=== PATIENT | male | born 1980 | race Caucasian/White ===

== ENCOUNTER 2021-09-21 17:11 | Emergency (ER) | payer SELFPAY ==
[2021-09-21 17:18] VITALS: BP 119/87
--- NOTE | 2021-09-21 17:35 | ED Physician Documentation ---
History of Present Illness - Stated complaint Stated Complaint: C+, FEVER, BODY ACHES, HEADACHE - Chief complaint Chief Complaint: Fever - History obtained from History obtained from: Patient - History of Present Illness Timing: Today Pain level max: 0 Pain level now: 0 - Additonal information Additional information: 41-year-old male states that he developed fever, body aches and headache today. Took a COVID test and it was positive. He states he came here for a work note. He states he does not know if he needs a work note or not but thought he would come in for a work note. Patient otherwise feels well at this time. He is not vaccinated. Nothing makes it better or worse. No difficulty breathing. Review of Systems Constitutional: reports: Fever Nose: reports: Rhinorrhea / runny nose Throat: denies: Sore throat Cardiac: denies: Chest pain / pressure, Palpitations Respiratory: reports: Cough. denies: Dyspnea GI: denies: Abdominal Pain, Vomiting Skin: denies: Rash PD PAST MEDICAL HISTORY - Past Medical History Past Medical History: No - Past Surgical History Past Surgical History: No - Present Medications Home Medications: Ambulatory Orders Medication Instructions Recorded Confirmed No Known Home Medications 09/21/21 09/21/21 - Allergies Allergies/Adverse Reactions: Allergies Allergy/AdvReac Type Severity Reaction Status Date / Time Penicillins Allergy Rash Verified 09/21/21 17:19 - Living Situation Living Arrangement: reports: At home - Family History Family history: reports: Non contributory PD ED PE NORMAL - Vitals Vital signs reviewed: Yes - General General: Alert and oriented X 3, No acute distress, Well developed/nourished - HEENT HEENT: PERRL, Moist mucous membranes - Neck Neck: Supple, no meningeal sign - Cardiac Cardiac: RRR, Strong equal pulses - Respiratory Respiratory: No respiratory distress, Clear bilaterally - Abdomen Abdomen: Soft, Non tender, Non distended - Derm Derm: Warm and dry - Extremities Extremities: No edema, No calf tenderness / cord - Neuro Neuro: Alert and oriented X 3 - Psych Psych: Normal mood, Normal affect Results - Vitals Vitals: Vital Signs - 24 hr 09/21/21 09/21/21 17:13 17:45 Temperature 37.2 C Heart Rate 98 60 Respiratory 18 11 L Rate Blood Pressure 119/87 H O2 Saturation 98 Oxygen O2 Source Room air PD MEDICAL DECISION MAKING - ED course Complexity details: considered differential, d/w patient ED course: 41-year-old male with a home positive COVID test. Repeat COVID test performed here. I will write a note for work. Patient is well-appearing, nontoxic. Afebrile. Does not want any antiviral therapy. Patient counseled regarding signs and symptoms for which I believe and urgent re-evaluation would be necessary. Patient with good understanding of and agreement to plan and is comfortable going home at this time This document was made in part using voice recognition software. While efforts are made to proofread this document, sound alike and grammatical errors may occur. Departure - Departure Disposition: Home, Self Care Clinical Impression: COVID-19 Condition: Good Instructions: COVID-19 [facility] Follow-Up: your,doctor in as needed [Other] Comments: Please follow-up with your doctor as needed for further care. Continue Motrin and Tylenol as needed at home. Return if you worsen. Isolation precautions for COVID Day 0 is your first day of symptoms or a positive viral test. Day 1 is the first full day after your symptoms developed or your test specimen was collected. If you have COVID-19 or have symptoms, isolate for at least 5 days. IF YOU: Tested positive for COVID-19 or have symptoms, regardless of vaccination status Stay home for at least 5 days Stay home for 5 days and isolate from others in your home. Wear a well-fitting mask if you must be around others in your home. Do not travel. Ending isolation if you had symptoms End isolation after 5 full days if you are fever-free for 24 hours (without the use of fever-reducing medication) and your symptoms are improving. Ending isolation if you did NOT have symptoms End isolation after at least 5 full days after your positive test. If you got very sick from COVID-19 or have a weakened immune system You should isolate for at least 10 days. Consult your doctor before ending isolation. Take precautions until day 10 Wear a well-fitting mask Wear a well-fitting mask for 10 full days any time you are around others inside your home or in public. Do not go to places where you are unable to wear a mask. Do not travel Do not travel until a full 10 days after your symptoms started or the date your positive test was taken if you had no symptoms. Avoid being around people who are more likely to get very sick from COVID-19. Forms: Activity restrictions Discharge Date/Time: 09/21/21 17:45
== END 2021-09-21 17:45 | disposition home or self-care (01) ==
LOC: ED 17:11
DX: U07.1 COVID-19 (principal)
CPT/HCPCS: 99282; 99283

== ENCOUNTER 2023-10-25 13:30 | Emergency (ER) | payer MEDICAID ==
[2023-10-25 13:42] VITALS: BP 140/90; O2SAT 100
== END 2023-10-25 16:07 | disposition left against medical advice (07) ==
LOC: ED 13:30
DX: Z53.21 Procedure and treatment not carried out due to patient leaving prior to being seen by health care provider (principal)

== ENCOUNTER 2023-11-03 23:47 | Emergency (ER) | payer MEDICAID ==
--- NOTE | 2023-11-04 01:12 | ED Physician Documentation ---
PD HPI SKIN - Stated complaint Stated Complaint: L SIDE GLUTEUS ABSESS - Chief complaint Chief Complaint: Wound - History obtained from History obtained from: Patient - Additional information Additional information: The patient comes to the emergency department chief complaint of pain in his medial left buttock adjacent to the anus. He is on antibiotics already for an abscess on his other cheek and states that he just finished his Bactrim this morning and has about 2 more days of his Keflex. He states it began to become painful over the last couple of days and that just hurts all the time now. No drainage. No fevers. No other complaints at this time. PD PAST MEDICAL HISTORY - Past Medical History Past Medical History: Yes Cardiovascular: Hypertension - Past Surgical History Past Surgical History: Yes Ortho: Other - Present Medications Home Medications: Ambulatory Orders Medication Instructions Recorded Confirmed HYDROcod/ACETAM 5/325 [[place] 5/325] 1 tab PO Q6H PRN #12 tablet 10/27/23 11/04/23 cephALEXin [Keflex] 500 mg PO Q6H #28 cap 10/27/23 11/04/23 Sulfamethox/Trimeth 800/160 1 each PO BID #10 tablet 11/04/23 [Bactrim Ds 800/160] cephALEXin [Keflex] 500 mg PO Q6H #20 cap 11/04/23 - Allergies Allergies/Adverse Reactions: Allergies Allergy/AdvReac Type Severity Reaction Status Date / Time Penicillins Allergy Rash Verified 11/03/23 23:51 - Social History Does the pt smoke?: Yes Smoking Status: Current every day smoker Does the pt drink ETOH?: Yes Does the pt have substance abuse?: No - Immunizations Immunizations are current?: Yes - POLST Patient has POLST: No PD ED PE NORMAL - Vitals Vital signs reviewed: Yes - General General: Alert and oriented X 3, No acute distress, Well developed/nourished - HEENT HEENT: Atraumatic, Moist mucous membranes - Neck Neck: Supple, no meningeal sign - Respiratory Respiratory: No respiratory distress - Rectal Rectal: Other (No distortion of anus. Anus appears normal.) - Derm Derm: Warm and dry, Other (Erythema of left buttock medially, extending adjacent to the anal opening. No fluctuance. Very small area of induration deep under soft surrounding tissue, which is much diminished if the patient relaxes his perianal muscles.) - Extremities Extremities: No deformity - Neuro Neuro: Alert and oriented X 3 - Psych Psych: Normal mood, Normal affect Results - Vitals Vitals: Vital Signs - 24 hr 11/03/23 11/04/23 23:51 00:33 Temperature 36.8 C 36.9 C Heart Rate 120 H 88 Respiratory 16 16 Rate Blood Pressure 140/93 H 138/78 H O2 Saturation 96 100 Oxygen O2 Source Room air PD Medical Decision Making - ED course Complexity details: considered differential, d/w patient ED course: I discussed with the patient that there is really quite minimal induration on exam. The induration feels much more prominent when the patient is very tense around his anal area, but when he relaxes, most of what feels like induration resolves, leaving only soft overlying tissues, indicating that what seems to be induration is mostly muscle tension. However, there is a very small area that feels quite deep that may represent some induration but does not feel like a distinct collection. I have explained to the patient that I do not feel that this warrants an I&D at this time unless we can demonstrate with ultrasound that there is a big enough fluid collection in there and exactly where it is. Unfortunately, we do not have ultrasound available overnight, so I have advised the patient that he can either continue his antibiotics, the course of which I will extend, or he can return during daytime hours for ultrasound to see if there is anything to cut into. I have sent extensions of his prescriptions for both Bactrim and Keflex to the pharmacy of the patient's choice. Departure - Departure Disposition: 01 Home, Self Care Clinical Impression: Pain of perianal area Cellulitis Qualifiers: Site of cellulitis: buttock Qualified Code(s): L03.317 - Cellulitis of buttock Condition: Stable Instructions: ED Infec Skin Cellulitis Prescriptions: Sulfamethox/Trimeth 800/160 [Bactrim Ds 800/160] 1 each PO BID #10 tablet cephALEXin [Keflex] 500 mg PO Q6H #20 cap Comments: You have an area of redness along your inner left buttock and adjacent to your anus. When you are able to relax your muscles, the area of firmness deeper and is very small and most of the tissue is actually quite soft. There is no distinct center of fluid collection that is palpable or even a significantly large hardened area to indicate likelihood of getting any fluid if we were to cut it open. An ultrasound would help to clarify whether there is any fluid at all and if so how much, but unfortunately we do not have ultrasound overnight. We will extend her antibiotics for another several days to make sure that this is adequately treated and I have sent the prescription off to the [facility] for you. If you continue to be concerned, you may return during daytime hours and we can check with ultrasound to see if there is any fluid there and if it is enough to drain. However, at this time, your physical exam does not indicate a likelihood of a fluid collection large enough to access deeply. Forms: PCP List Discharge Date/Time: 11/04/23 01:20
[2023-11-04 01:28] VITALS: BP 138/78; O2SAT 100
== END 2023-11-04 01:20 | disposition home or self-care (01) ==
LOC: ED 23:47
DX: L03.317 Cellulitis of buttock (principal); K62.89 Other specified diseases of anus and rectum; I10 Essential (primary) hypertension; F17.200 Nicotine dependence, unspecified, uncomplicated
CPT/HCPCS: 99282; 99283

== ENCOUNTER 2023-11-05 08:22 | Emergency (ER) | payer MEDICAID ==
--- NOTE | 2023-11-05 09:11 | ED Physician Documentation ---
PD HPI SKIN - Stated complaint Stated Complaint: LEFT BUTT PX - Chief complaint Chief Complaint: Wound - History obtained from History obtained from: Patient - History of Present Illness Timing - onset: How many days ago (4) Timing - duration: Days (4) Timing - details: Gradual onset (had had abscess in right buttock cheek 10 days ago and seen in ER with I&D of abscess 10/26. Also abx and some pain meds. Improved after few days. Now with 4 days of increasing pain/swelling left perirectal gluteal area. Seen a day ago during night with Rx for repeat an tibiotics. Has not picked them.), Still present Location: Other (left gluteral perirectal area.) Quality / character: Painful, Swelling. No: Draining Associated symptoms: No: Fever, Myalgias Similar symptoms before: Diagnosis (has had perirectal abscess in the past.) Review of Systems Constitutional: denies: Fever, Chills PD PAST MEDICAL HISTORY - Past Medical History Past Medical History: Yes Cardiovascular: Hypertension - Past Surgical History Past Surgical History: Yes Ortho: Other - Present Medications Home Medications: Ambulatory Orders Medication Instructions Recorded Confirmed HYDROcod/ACETAM 5/325 [[place] 5/325] 1 tab PO Q6H PRN #12 tablet 10/27/23 11/04/23 cephALEXin [Keflex] 500 mg PO Q6H #28 cap 10/27/23 11/04/23 Sulfamethox/Trimeth 800/160 1 each PO BID #10 tablet 11/04/23 [Bactrim Ds 800/160] cephALEXin [Keflex] 500 mg PO Q6H #20 cap 11/04/23 Meloxicam [Mobic] 7.5 mg PO BID 10 Days #20 tablet 11/05/23 Oxycodone HCl/Acetaminophen 1 each PO Q6H PRN #20 tablet 11/05/23 [Percocet 5-325 mg Tablet] - Allergies Allergies/Adverse Reactions: Allergies Allergy/AdvReac Type Severity Reaction Status Date / Time Penicillins Allergy Rash Verified 11/05/23 08:41 - Social History Does the pt smoke?: Yes Smoking Status: Current every day smoker Does the pt drink ETOH?: Yes Does the pt have substance abuse?: No - Immunizations Immunizations are current?: Yes - POLST Patient has POLST: No PD ED PE NORMAL - Vitals Vital signs reviewed: Yes - General General: Alert and oriented X 3, Well developed/nourished, Other (seems uncomfortable due to pain of gluteal abscess. ) - Rectal Rectal: Other (left perirectal area with firm induration without palpable fluctuance. Redness and tender of the skin. Bedside US did not visualize fluid collection however, just the thicker cellulitic tissue.) - Derm Derm: Normal color, Warm and dry - Extremities Extremities: Other Results - Vitals Vitals: Oxygen O2 Source Room air - Labs Labs: Laboratory Tests 11/05/23 11/05/23 09:54 09:54 WBC 13.6 H RBC 4.49 L Hgb 13.7 L Hct 40.5 L MCV 90.2 MCH 30.5 MCHC 33.8 RDW 12.6 Plt Count 330 MPV 9.0 Neut # (Auto) 9.5 H Lymph # (Auto) 2.7 Mcclain # (Auto) 1.2 H Eos # (Auto) 0.0 Baso # (Auto) 0.1 Absolute Nucleated RBC 0.00 Nucleated RBC % 0.0 Sodium 139 Potassium 3.9 Chloride 107 Carbon Dioxide 22 Anion Gap 10.0 BUN 6 Creatinine 0.5 L Estimated GFR (MDRD) 181 Glucose 112 H Calcium 9.4 Magnesium 2.0 Total Bilirubin 0.2 AST 35 ALT 56 Alkaline Phosphatase 99 Total Protein 7.6 Albumin 4.2 Globulin 3.4 Albumin/Globulin Ratio 1.2 Lipase 38 Ethyl Alcohol 230.6 - Rads (name of study) pelvic CT Relevant Findings:: Prelim report reviewed, EMP independent interpretation of test (abscess perirectal small at 2.4 x 1.6 cm and deeper in tissue. ) PD Medical Decision Making - ED course Complexity details: reviewed results (bedside US by me did not see the abscess (I think close to rectum and anus and so did not see it deeper). Inflammatory changes/cellulitis seen well. Due to degree of pain, did CT to eval for deeper involvement. It was deeper but small fluid collection 2.4 x 1.3 cm), considered differential (had abscess other cheek, now this side, presume dircect contact spread to another skin gland/site. Rd and tender. ), d/w patient, d/w data virtualization consultant (Dr. Delgadillo - who looked at images and I conveyed my exam findings - stated usually don't need draining under 3 cm and so since is a little deeper, to not have to do I&D for now. (If it were near surface and easy, then would be fine to incise, but not necessary). ) Departure - Departure Disposition: 01 Home, Self Care Clinical Impression: Perirectal abscess Condition: Stable Record reviewed to determine appropriate education?: Yes Follow-Up: Alannah Cobb FNP [Primary Care Provider] - Prescriptions: Meloxicam [Mobic] 7.5 mg PO BID 10 Days #20 tablet Oxycodone HCl/Acetaminophen [Percocet 5-325 mg Tablet] 1 each PO Q6H PRN #20 tablet PRN Reason: pain Comments: The infection on your left buttock is mostly in the tissue (cellulitis) with a small abscess or collection of infection a little bit deeper in the muscle area. I could not see it readily on ultrasound bedside and on CT scan can visualize that it is a little bit deeper, about an inch or so. This would require little bit deeper incision or drainage and the size of it currently is 2.4 x 1.2 cm which is about less than an inch by a third of an inch. I talked with our surgeon on-call who said in that area, abscesses less than 3 cm typically can be treated with the antibiotics alone without drainage. Will try it that approach along with the warm compresses etc. that you have been doing and see if this resolves. If it seems to be lingering and severity or worsening, over the next couple of days, then return to the ER and we will see if it has accumulated more fluid that would now need draining. Otherwise I would anticipate this improving over the next several days and resolved by 4 to 5 days. 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 I sent over prescriptions also for an anti-inflammatory and some pain pills 2. You were given extra doses of antibiotics IV here but when you get the oral prescription from the pharmacy, continue taking it on schedule as if you had not received any extra here. I sent your prescriptions to the [facility] pharmacy here in [place]. I am prescribing a short course of narcotic pain medication for you. These are potentially dangerous and addictive medications that should be used carefully. These medications may constipate you. Take an [id number] stool softener such as docusate twice daily with plenty of water while taking these medications. If you go 24 hours without a bowel movement, take [id number] MiraLAX, per package instructions. Do not drink or drive while taking these medications. If you received narcotic or sedating medications while in the emergency depar tment do not drive for 24 hours. Store this medication in a safe, secure place and out of reach of children. It is a violation of federal law to give or sell this medication to another person or to use in a manner other than prescribed. The ED will not refill narcotic prescriptions, including prescriptions lost or stolen. You can dispose of unwanted medications at the [facility] office or at several pharmacies such as [facility]. Forms: PCP List Discharge Date/Time: 11/05/23 13:17
[2023-11-05 10:01] LABS: BASOPHILS # (AUTO) 0.1 10^3/uL (0.0-0.1); BASOPHILS % (AUTO) 0.6 %; HCT - HEMATOCRIT 40.5 % (42.0-52.0); HGB - HEMOGLOBIN 13.7 g/dL (14.0-18.0); LYMPHOCYTES # (AUTO) 2.7 10^3/uL (1.5-3.5); LYMPHOCYTES % (AUTO) 19.8 %; MEAN CORPUSCULAR HEMOGLOBIN 30.5 pg (27.0-31.0); MEAN CORPUSCULAR HGB CONC 33.8 g/dL (32.0-36.0); MEAN CORPUSCULAR VOLUME 90.2 fL (80.0-94.0); MONOCYTES # (AUTO) 1.2 10^3/uL (0.0-1.0); NEUTROPHILS # (AUTO) 9.5 10^3/uL (1.5-6.6); NEUTROPHILS % (AUTO) 70.2 %; PLT - PLATELET COUNT 330 10^3/uL (130-450); RED BLOOD COUNT 4.49 10^6/uL (4.70-6.10); RED CELL DISTRIBUTION WIDTH 12.6 % (12.0-15.0); WHITE BLOOD COUNT 13.6 x10^3/uL (4.8-10.8)
[2023-11-05] MEDS ORDERED: iohexoL-300 100 ML VIAL ONE (10:05)
[2023-11-05 10:17] LABS: ALBUMIN 4.2 g/dL (3.2-5.5); ALBUMIN/GLOBULIN RATIO 1.2 (1.0-2.2); BILIRUBIN,TOTAL 0.2 mg/dL (0.2-1.0); CALCIUM 9.4 mg/dL (8.5-10.3); CREATININE 0.5 mg/dL (0.6-1.3); ETOH - ETHANOL 230.6 mg/dL; POTASSIUM 3.9 mmol/L (3.5-4.5); TOTAL PROTEIN 7.6 g/dL (6.4-8.9)
[2023-11-05] MEDS: KETOROLAC 15 MG/ML VIAL IVP STA (10:30)
[2023-11-05] MEDS: HYDROmorphone 1 MG/ML CARPUJECT IVP STA ×2 (10:30→12:21)
[2023-11-05] MEDS: cefTRIAXone 1 GM VIAL IVP STA (10:31)
[2023-11-05] MEDS: CLINDAMYCIN 600 MG/50 ML 50 ML IV ONE (10:55)
--- NOTE | 2023-11-05 11:22 | CT Report ---
PROCEDURE: Pelvis W INDICATIONS: perirectal abscess and deeper rectal pain CONTRAST: Omni 300 100ml TECHNIQUE: After the administration of intravenous contrast, a CT scan of the pelvis was performed. Images were recorded and evaluated at appropriate window settings. Reformats: axial MIP of the chest, coronal an d sagittal. For radiation dose reduction, the following was used: automated exposure control, adjustm ent of mA and/or kV according to patient size. COMPARISON: None FINDINGS: Image quality: Excellent. Bowel and peritoneum: No bowel distension. No pathologic free fluid. No peritoneal free air. Vessels: No infrarenal aortic aneurysm. Reproductive organs: Unremarkable. Bladder: No abnormal wall thickening, accounting for underdistention. Pelvic lymph nodes: Skin thickening and subcutaneous fat stranding involving left perianal space with peripherally enhancing fluid collection measures up to 2.4 x 1.3 x 2.3 cm in size series 6 image 104 and series 2 image 87. Bones: No aggressive osseous abnormality. Other: No significant ventral or inguinal hernia. Enlarged lymph nodes are seen in left inguinal bertrand on likely reactive in nature. IMPRESSION: 1. Cellulitis in left perianal soft tissue with 2.4 x 1.3 x 2.5 cm left perianal abscess collection. 2. Enlarged left inguinal lymph nodes likely reactive in nature. 3. No peritoneal abscess collection. No pelvic free fluid of free air. Reviewed by: Leander Huerta MD on 11/05/2023 11:21 AM PDT Approved by: Leander Huerta MD on 11/05/2023 11:21 AM PDT Station ID: [id number]
[2023-11-05] MEDS: SODIUM CHLORIDE 0.9% 1,000 ML IV STA (11:27)
[2023-11-05] MEDS: iohexoL-300 100 ML VIAL IVP ONE (11:58)
[2023-11-05 13:19] VITALS: BP 122/88; O2SAT 98
== END 2023-11-05 13:17 | disposition home or self-care (01) ==
LOC: ED 08:22
DX: F17.200 Nicotine dependence, unspecified, uncomplicated (principal); K61.1 Rectal abscess; L03.317 Cellulitis of buttock
CPT/HCPCS: 36415; 72193; 80053; 82077; 83690; 83735; 85025; 96365; 96375; 96376; 99284; J1170; Q9967

== ENCOUNTER 2023-11-19 10:00 | Outpatient (CLI) | payer MEDICAID ==
[2023-11-19 10:23] LABS: ALBUMIN 4.9 g/dL (3.2-5.5); ALBUMIN/GLOBULIN RATIO 1.6 (1.0-2.2); ALKALINE PHOSPHATASE 85 IU/L (42-121); ALT ALANINE AMINOTRANSFERASE 82 IU/L (10-60); AST ASPARTATE AMINOTRANSFERASE 58 IU/L (10-42); BILIRUBIN,TOTAL 0.4 mg/dL (0.2-1.0); BUN - BLOOD UREA NITROGEN 8 mg/dL (6-20); CALCIUM 9.8 mg/dL (8.5-10.3); CARBON DIOXIDE - CO2 28 mmol/L (21-32); CHLORIDE 103 mmol/L (101-111); CHOL/HDL RATIO 4.9 (<5.0); CHOLESTEROL 243 mg/dL; CREATININE 0.8 mg/dL (0.6-1.3); GFR - MDRD 105 (>89); GLUCOSE 95 mg/dL (74-104); HDL CHOLESTEROL 50 mg/dL; LDL CHOLESTEROL,CALCULATED 117 mg/dL; LDL/HDL RATIO 2.3 (<3.6); POTASSIUM 4.1 mmol/L (3.5-4.5); SODIUM 138 mmol/L (135-145); TRIGLYCERIDES 382 mg/dL; VLDL CHOLESTEROL 76 mg/dL
[2023-11-19 10:27] LABS: BASOPHILS # (AUTO) 0.1 10^3/uL (0.0-0.1); BASOPHILS % (AUTO) 1.1 %; EOSINOPHILS % (AUTO) 0.1 %; HCT - HEMATOCRIT 43.2 % (42.0-52.0); HGB - HEMOGLOBIN 14.4 g/dL (14.0-18.0); LYMPHOCYTES # (AUTO) 2.9 10^3/uL (1.5-3.5); LYMPHOCYTES % (AUTO) 39.7 %; MEAN CORPUSCULAR HEMOGLOBIN 30.1 pg (27.0-31.0); MEAN CORPUSCULAR HGB CONC 33.3 g/dL (32.0-36.0); MEAN CORPUSCULAR VOLUME 90.2 fL (80.0-94.0); MEAN PLATELET VOLUME 8.9 fL (7.4-11.4); MONOCYTES # (AUTO) 0.5 10^3/uL (0.0-1.0); MONOCYTES % (AUTO) 7.3 %; NEUTROPHILS # (AUTO) 3.7 10^3/uL (1.5-6.6); NEUTROPHILS % (AUTO) 51.5 %; PLT - PLATELET COUNT 324 10^3/uL (130-450); RED BLOOD COUNT 4.79 10^6/uL (4.70-6.10); RED CELL DISTRIBUTION WIDTH 12.9 % (12.0-15.0); WHITE BLOOD COUNT 7.2 x10^3/uL (4.8-10.8)
[2023-11-19 10:38] LABS: THYROID STIMULATING HORMONE 1.45 uIU/mL (0.34-5.60)
== END 2023-11-19 10:01 | disposition home or self-care (01) ==
LOC: LAB 10:00
PROVIDERS: ATTEND Nurse Practitioner Family
DX: I10 Essential (primary) hypertension (principal); F10.239 Alcohol dependence with withdrawal, unspecified
CPT/HCPCS: 36415; 80050; 80061; 83721

== ENCOUNTER 2023-12-15 06:54 | Outpatient (CLI) | payer MEDICAID ==
--- NOTE | 2023-12-15 16:02 | Ultrasound Report ---
PROCEDURE: Abdomen Complete INDICATIONS: ELEVATED LIVER ENZYMES TECHNIQUE: Real-time scanning was performed of the abdominal and retroperitoneal organs, with image documentatio n. COMPARISON: None. FINDINGS: Liver: Liver measures 16.5 cm with increased echogenicity. Gallbladder: 6 mm nonmobile focus is present within the gallbladder lumen. Wall thickness measures 2. 3 mm. Biliary ducts: Intrahepatic bile ducts are non-dilated. Extrahepatic bile duct caliber measures 5.5 mm. Normal is 6-7 mm or less in diameter, or 10 mm or less post-cholecystectomy. Pancreas: Visualized portions of the pancreas are sonographically normal. Spleen: Spleen is normal in size and homogeneous in echotexture. Kidneys: Kidneys are normal in size and echotexture. Right kidney measures 11.3 cm long; left kidne y measures 12.1 cm long. No hydronephrosis or nephrolithiasis. No solid masses. No complex renal cy stic lesions which require follow-up. Aorta: Visualized aorta is normal in caliber at less than 3 cm. Iliacs: Proximal common iliac arteries are normal in caliber at less than 2.5 cm. IVC: Intrahepatic inferior vena cava is patent. Miscellaneous: No free abdominal fluid. IMPRESSION: Hepatic steatosis. Gallbladder polyp versus adherent sludge in the gallbladder. Reviewed by: Sabine Wilson MD on 12/15/2023 4:01 PM PDT Approved by: Sabine Wilson MD on 12/15/2023 4:01 PM PDT Station ID: [id number]
== END 2023-12-15 06:55 | disposition home or self-care (01) ==
LOC: DI 06:54
PROVIDERS: ATTEND Nurse Practitioner Family
DX: K76.0 Fatty (change of) liver, not elsewhere classified (principal)